=== PATIENT | male | born 2000 | race Caucasian/White ===

== ENCOUNTER 2024-01-25 08:44 | Emergency (ER) | payer BC ==
[~2024-01-25] VITALS: Ht 177.8 cm; Wt 123.2 kg
[2024-01-25 09:10] LABS: CLARITY,URINE CLOUDY (Clear); COLOR,URINE RED (Yellow)
[2024-01-25 09:22] LABS: UA COLLECTION TYPE CLN CATCH MIDSTREAM
[2024-01-25 09:25] LABS: BACTERIA,URINE FEW /HPF (Neg); RBC,URINE TNTC /HPF (0-2); SQUAMOUS EPITHELIAL CELL,UR FEW /LPF (FEW)
[2024-01-25 09:37] LABS: EOSINOPHILS # (AUTO) 0.1 X10'3 (0-0.9); EOSINOPHILS % (AUTO) 1.4 % (0-6); LYMPHOCYTES # (AUTO) 2.2 X10'3 (1.1-4.8)
[2024-01-25 09:39] LABS: BASOPHILS % (AUTO) 0.4 % (0-1); HEMATOCRIT 42.1 % (42.0-52.0); HEMOGLOBIN 14.6 g/dl (14.0-17.9); LYMPHOCYTES % (AUTO) 21.1 % (21-51); MEAN CORPUSCULAR HEMOGLOBIN 32.8 PG (27.0-31.0); MEAN CORPUSCULAR HGB CONC 34.8 g/dL (33.0-36.5); MEAN CORPUSCULAR VOLUME 94.3 FL (78-98); MEAN PLATELET VOLUME 9.2 FL (7.4-10.4); MONOCYTES # (AUTO) 0.7 X10'3 (0-0.9); NEUTROPHILS # (AUTO) 7.2 X10'3 (1.8-7.7); NEUTROPHILS % (AUTO) 70.1 % (42-75); PLATELET COUNT 227 X10'3 (140-440); RED BLOOD COUNT 4.46 X10'6 (4.70-6.10); RED CELL DISTRIBUTION WIDTH 13.3 % (11.5-14.5); WHITE BLOOD COUNT 10.3 X10'3 (4.5-11.0)
[2024-01-25 09:53] LABS: ALANINE AMINOTRANSFERASE 52 U/L (12-78); ALBUMIN 4.1 G/DL (3.4-5.0); ALBUMIN/GLOBULIN RATIO 1.4 (1.1-1.5); ALKALINE PHOSPHATASE 59 IU/L (46-116); ANION GAP 9 (8-16); ASPARTATE AMINO TRANSFERASE 26 U/L (10-37); BLOOD UREA NITROGEN 16 MG/DL (7-18); BUN/CREATININE RATIO 13.7 (10.0-20.0); CALCIUM 8.4 MG/DL (8.5-10.1); CHLORIDE 104 MMOL/L (99-107); CREATININE 1.17 MG/DL (0.60-1.10); GLUCOSE 95 MG/DL (70-104); LIPASE 21 U/L (16-77); POTASSIUM 4.2 MMOL/L (3.5-5.1); SODIUM 142 MMOL/L (135-145); TOTAL CARBON DIOXIDE 29.5 MMOL/L (24-32); eCRCL 102 ML/MIN; eGFR 78 ML/MIN
[2024-01-25 12:16] VITALS: BP 121/79; PULSE 54; RESP 16; TEMP 97.7; O2SAT 99
== END 2024-01-25 12:25 | disposition home or self-care (01) ==
LOC: ER 08:45
DX: T81.89XA Other complications of procedures, not elsewhere classified, initial encounter (principal); R31.9 Hematuria, unspecified; Z87.442 Personal history of urinary calculi
CPT/HCPCS: 36415; 74176; 80053; 81001; 83690; 85025; 87088; 99284